=== PATIENT | female | born 1990 | race Caucasian/White ===

== ENCOUNTER 2016-10-04 14:44 | Emergency (ER) | payer SELFPAY ==
[2016-10-04 14:49] VITALS: BMI 20.3
[2016-10-04 14:53] VITALS: RESP 18; TEMP 98.2
[2016-10-04] MEDS ORDERED: TraMADol/Apap 37.5/325 mg Tab PO STA (15:20)
--- NOTE | 2016-10-04 15:24 | ED PDOC ---
Arrival/HPI - General Chief Complaint: Back Pain Time Seen by Provider: 10/04/16 15:04 Historian: Patient - History of Present Illness Narrative History of Present Illness (Text): 10/04/16 15:21 This 26 yo female with pmh herniated disc, presents to this ED c/o left lower back pain x 3 days. Patient stated pain stated after bending her back. Patient denies recent trauma, weakness, paresthesias, /GI incontinence, saddle anesthesia, urinary retention, urinary symptoms, vaginal discharge, vaginal bleeding, or abnormal gait. Time/Duration: Other (3 days) Quality: Aching Context: Home Past Medical History - Provider Review Nursing Documentation Reviewed: Yes - Infectious Disease Hx of Infectious Diseases: None - Cardiac Hx Cardiac Disorders: Yes Hx Hypertension: Yes Hx Pacemaker: No - Pulmonary Hx Respiratory Disorders: No Hx Asthma: No Hx Chronic Obstructive Pulmonary Disease (COPD): No Hx Emphysema: No - Neurological Hx Neurological Disorder: Yes HX Cerebrovascular Accident: No Hx Dementia: No Hx Migraine: Yes Hx Seizures: No - HEENT Hx HEENT Disorder: No - Renal Hx Renal Disorder: No - Endocrine/Metabolic Hx Endocrine Disorders: No - Hematological/Oncological Hx Blood Disorders: No Hx Cancer: No - Integumentary Hx Dermatological Disorder: No - Musculoskeletal/Rheumatological Hx Musculoskeletal Disorders: Yes Hx Back Pain: Yes Hx Herniated Disk: Yes - Gastrointestinal Hx Gastrointestinal Disorders: No Hx Gastroesophageal Reflux: No - Genitourinary/Gynecological Hx Genitourinary Disorders: No - Psychiatric Hx Psychophysiologic Disorder: No Hx Depression: No Hx Emotional Abuse: No Hx Physical Abuse: No Hx Substance Use: No - Surgical History Other/Comment: R knee surgery - Anesthesia Hx Anesthesia: Yes Hx Anesthesia Reactions: No - Suicidal Assessment Feels Threatened In Home Enviroment: No Family/Social History - Physician Review Nursing Documentation Reviewed: Yes Family/Social History: No Known Family HX Smoking Status: Current Some Days Smoker Hx Alcohol Use: No Hx Substance Use: No Hx Substance Use Treatment: No Allergies/Home Meds Allergies/Adverse Reactions: Allergies No Known Allergies Allergy (Verified 10/04/16 14:49) Home Medications: Home Meds Medication Instructions Recorded Confirmed Acetaminophen/Butalbital/Caf 1 tab PO BID PRN 10/04/16 10/04/16 [Fioricet] Review of Systems - Review of Systems Constitutional: Normal. absent: Fatigue, Weight Change, Fevers, Night Sweats Eyes: Normal ENT: Normal Respiratory: Normal. absent: SOB, Cough Cardiovascular: Normal. absent: Chest Pain, Palpitations Gastrointestinal: Normal. absent: Abdominal Pain, Nausea, Vomiting Genitourinary Female: Normal Musculoskeletal: Back Pain. absent: Arthralgias, Neck Pain, Joint Swelling Skin: Normal. absent: Rash Neurological: Normal. absent: Headache, Dizziness, Focal Weakness, Gait Changes , Speech Changes Endocrine: Normal Hemo/Lymphatic: Normal Psychiatric: Normal Physical Exam Vital Signs Temp Pulse Resp BP Pulse Ox 10/04/16 14:52 98.2 F 84 18 102/67 100 Temperature: Afebrile Blood Pressure: Normal Pulse: Regular Respiratory Rate: Normal Appearance: Positive for: Well-Appearing, Non-Toxic, Comfortable Pain Distress: None Mental Status: Positive for: Alert and Oriented X 3 - Systems Exam Head: Present: Atraumatic, Normocephalic Pupils: Present: PERRL Extroacular Muscles: Present: EOMI Conjunctiva: Present: Normal Mouth: Present: Moist Mucous Membranes Neck: Present: Normal Range of Motion, Trachea Midline. No: Meningeal Signs, MIDLINE TENDERNESS, Paraspinal Tenderness Respiratory/Chest: Present: Clear to Auscultation, Good Air Exchange. No: Respiratory Distress, Accessory Muscle Use, Wheezes, Retracting Cardiovascular: Present: Regular Rate and Rhythm, Normal S1, S2. No: Murmurs Abdomen: Present: Normal Bowel Sounds. No: Tenderness, Distention, Peritoneal Signs Back: Present: Normal Inspection, Paraspinal Tenderness ((+) mild left paravertebral tenderness. No vertebral point tenderness. no vertebral step off ). No: CVA Tenderness, Midline Tenderness Upper Extremity: Present: Normal Inspection, Normal ROM, NORMAL PULSES, Neurovascularly Intact, Capillary Refill < 2s. No: Cyanosis, Edema Lower Extremity: Present: Normal Inspection, NORMAL PULSES, Normal ROM, Neurovascularly Intact, Capillary Refill < 2 s. No: Edema Neurological: Present: GCS=15, CN II-XII Intact, Speech Normal, Motor Func Grossly Intact, Normal Sensory Function, Normal Cerebellar Funct, Gait Normal, Memory Normal, Other (No nuro focal deficits) Skin: Present: Warm, Dry, Normal Color. No: Rashes Psychiatric: Present: Alert, Oriented x 3, Normal Insight, Normal Concentration Medical Decision Making ED Course and Treatment: 10/04/16 16:21 Re-evaluation. Patient feels better. Discussed results and plan with patient who expresses understanding. Counseling was provided regarding the diagnosis and prognosis. All questions answered and there is agreement with the plan to discharge home with instructions. Patient stable for discharge. Return if symptoms persist or worsen Patient was recommended to f/u clinic doctor for follow up visit in 1-2 days. To return to ER if symptoms worsen. 10/04/16 16:22 Patient was tretaed with Toradol IM, Valium, and ultracet, which improved patient symptoms. Re-evaluation Time: 16:22 Reassessment Condition: Re-examined, Improved - Medication Orders Current Medication Orders: Discontinued Medications Diazepam (Valium) 5 mg PO ONCE ONE PRN Reason: Protocol Stop: 10/04/16 15:20 Last Admin: 10/04/16 15:42 Dose: 5 mg Ketorolac Tromethamine (Toradol) 30 mg IM STAT STA Stop: 10/04/16 15:21 Last Admin: 10/04/16 15:42 Dose: 30 mg Tramadol/Acetaminophen (Ultracet 37.5/325 Mg) 1 tab PO STAT STA Stop: 10/04/16 15:21 Last Admin: 10/04/16 15:42 Dose: 1 tab Disposition/Present on Arrival - Present on Arrival Any Indicators Present on Arrival: No History of DVT/PE: No History of Uncontrolled Diabetes: No Urinary Catheter: No History of Decub. Ulcer: No History Surgical Site Infection Following: None - Disposition Have Diagnosis and Disposition been Completed?: Yes Diagnosis: Back pain Disposition: HOME/ ROUTINE Disposition Time: 16:23 Patient Plan: Discharge Condition: IMPROVED Discharge Instructions (ExitCare): Back Pain (ED) Additional Instructions: Call clinic office for follow up visit in 1-2 days. Take medication as instructed with food. return to emergency if symptoms worsen, worsen pain, urinary or bowel incontinence. Prescriptions: diaZEpam [Valium] 5 mg PO DAILY #7 tab Naproxen 500 mg PO BID PRN #14 tab PRN Reason: Pain, Severe (8-10) traMADol [Ultram] 50 mg PO TID PRN #15 tab PRN Reason: Pain, Severe (8-10) Referrals: Zac Cantu, [Primary Care Provider] - Follow up with primary [facility] [Outside] - Follow up with primary [facility] [Outside] - Follow up with primary [facility] [Outside] - Follow up with primary Forms: [employer] (Faroese), WORK NOTE
[2016-10-04 16:45] VITALS: BP 98/76; PULSE 78; O2SAT 98
== END 2016-10-04 16:46 | disposition home or self-care (01) ==
LOC: ED 14:44
DX: M54.5 Low back pain (principal)
CPT/HCPCS: 96372; 99284; J1885

== ENCOUNTER 2017-03-23 22:53 | Emergency (ER) | payer SELFPAY ==
[2017-03-23 22:55] VITALS: BMI 20.3
[2017-03-23] MEDS ORDERED: Multivitamin (MVI) 10 ML, Thiamine 100 MG, Folic Acid 1 MG in Dextrose 5% In Water 1,00... IV ONE (23:10)
--- NOTE | 2017-03-23 23:14 | ED PDOC ---
Arrival/HPI - General Chief Complaint: Anxiety Time Seen by Provider: 03/23/17 23:01 Historian: Patient, Partner EM Caveat: Acuity of Condition - Critical Care Critical Care Minutes: 30 minutes - History of Present Illness Narrative History of Present Illness (Text): 03/23/17 23:12 Healthy 26 yo had roughly 8 drinks in less than an hour because she was upset emotionally and presents now in the midst of a full blown panic attack. Hyperventilating and carpal pedal spasm. Boyfriend and supportive female friend at the bedside coaching her to breathe slowly, NRB face mask applied. Time/Duration: 1/2 hour Symptom Onset: Sudden Symptom Course: Worsening Quality: Other (hyperventilating) Severity Level: 8 Context: Other (out drinking alcohol with friends) Associated Symptoms (Text): 03/23/17 23:15 NONE Past Medical History - Provider Review Nursing Documentation Reviewed: Yes - Travel History Have you recently traveled outside [place] w/in the past 3 mons?: No - Past History Past History: No Previous - Infectious Disease Hx of Infectious Diseases: None - Tetanus Immunization Tetanus Immunization: Unknown - Reproductive Menopause: No Currently : Unknown - Cardiac Hx Cardiac Disorders: Yes Hx Hypertension: Yes Hx Pacemaker: No - Pulmonary Hx Respiratory Disorders: No Hx Asthma: No Hx Chronic Obstructive Pulmonary Disease (COPD): No Hx Emphysema: No - Neurological Hx Neurological Disorder: Yes HX Cerebrovascular Accident: No Hx Dementia: No Hx Migraine: Yes Hx Seizures: No - HEENT Hx HEENT Disorder: No - Renal Hx Renal Disorder: No - Endocrine/Metabolic Hx Endocrine Disorders: No - Hematological/Oncological Hx Blood Disorders: No Hx Cancer: No - Integumentary Hx Dermatological Disorder: No - Musculoskeletal/Rheumatological Hx Musculoskeletal Disorders: Yes Hx Back Pain: Yes Hx Herniated Disk: Yes - Gastrointestinal Hx Gastrointestinal Disorders: No Hx Gastroesophageal Reflux: No - Genitourinary/Gynecological Hx Genitourinary Disorders: No - Psychiatric Hx Psychophysiologic Disorder: No Hx Depression: No Hx Emotional Abuse: No Hx Physical Abuse: No Hx Substance Use: No - Surgical History Other/Comment: R knee surgery - Anesthesia Hx Anesthesia: Yes Hx Anesthesia Reactions: No - Suicidal Assessment Feels Threatened In Home Enviroment: No Family/Social History - Physician Review Nursing Documentation Reviewed: Yes Family/Social History: No Known Family HX Smoking Status: Current Some Days Smoker Hx Alcohol Use: Yes Frequency of alcohol use: Few days per week Hx Substance Use: No Hx Substance Use Treatment: No Allergies/Home Meds Allergies/Adverse Reactions: Allergies No Known Allergies Allergy (Verified 10/04/16 14:49) Home Medications: Home Meds Medication Instructions Recorded Confirmed No Known Home Med 03/23/17 03/23/17 Review of Systems - Physician Review All systems were reviewed & negative as marked: Yes - Review of Systems Systems not reviewed;Unavailable: Intoxicated Musculoskeletal: Other (carpal pedal spasm) Skin: Normal Neurological: Other (hyperventilating) Psychiatric: Anxiety, Depression Physical Exam - Physical Exam Narrative Physical Exam (Text): 03/23/17 23:20 26 yo healthy female hyperventilating but aware, refuses to answer questions. Skin color good, pupils reactive, HEENT Atraumatic, Neck Supple, Chest, CTA, Heart, RRR no Murmur, ABD soft and benign, Extr unremarkable, Integument, no trauma, Neuro exam not performed, patient unable to cooperate Physical Exam Limitations: Uncooperative Vital Signs Reviewed: Yes Vital Signs Temp Pulse Resp BP Pulse Ox 03/24/17 03:00 17 03/24/17 02:57 81 18 110/74 99 03/24/17 01:47 84 16 107/79 99 03/24/17 01:00 17 03/24/17 00:45 81 17 102/55 L 100 03/24/17 00:29 97.7 F 03/23/17 23:45 86 20 102/66 86 L 03/23/17 23:30 83 19 108/70 100 03/23/17 23:15 30 H 03/23/17 23:00 109 H 32 H 134/83 100 Temperature: Afebrile Blood Pressure: Normal Pulse: Tachycardic Respiratory Rate: Tachypneic Appearance: Positive for: Well-Appearing Pain Distress: Other (Hyperventilating, emotionally distressed) Mental Status: Positive for: Agitated - Systems Exam Head: Present: Atraumatic, Normocephalic Pupils: Present: PERRL Extroacular Muscles: Present: EOMI Conjunctiva: Present: Normal Mouth: Present: Moist Mucous Membranes Pharnyx: Present: Normal, Soft Palate/Uvular Edema. No: ERYTHEMA, EXUDATE, TONSILS ENLARGED Nose (Internal): Present: Normal Inspection Neck: Present: Normal Range of Motion Respiratory/Chest: Present: Clear to Auscultation Cardiovascular: Present: Regular Rate and Rhythm. No: Murmurs Abdomen: Present: Normal Bowel Sounds. No: Tenderness, Distention Rectal: Present: Other (deferred) Genitourinary/Pelvic Exam: Present: Other (deferred) Back: Present: Normal Inspection. No: CVA Tenderness, Midline Tenderness Upper Extremity: Present: Normal Inspection. No: Cyanosis, Edema Lower Extremity: Present: Normal Inspection. No: Edema Neurological: Present: CN II-XII Intact, Normal Sensory Function Skin: Present: Warm, Dry Psychiatric: Present: Alert, Anxious, Agitated, Intoxicated Medical Decision Making ED Course and Treatment: 03/23/17 23:25 Will check for alcohol level and toxicology, possible , IV multivitamins and Thiamine, rodriguez catheter - Lab Interpretations Lab Results: 03/23/17 23:30 03/23/17 23:30 Lab Results 03/23/17 23:30: Urine Opiates Screen Negative, Urine Methadone Screen Negative, Ur Barbiturates Screen Negative, Ur Phencyclidine Scrn Negative, Ur Amphetamines Screen Negative, U Benzodiazepines Scrn Negative, U Oth Cocaine Metabols Negative, U Cannabinoids Screen Positive H 03/23/17 23:30: Beta HCG, Quant < 2.39, Alcohol, Quantitative 136 H 03/23/17 23:30: Sodium 138, Potassium 3.5 L, Chloride 106, Carbon Dioxide 18 L, Anion Gap 18, BUN 11, Creatinine 0.6 L, Est GFR ( Amer) > 60, Est GFR ( Non-Af Amer) > 60, Random Glucose 89, Calcium 9.5, Total Bilirubin 0.4, AST 31, ALT 31, Alkaline Phosphatase 101, Total Protein 7.6, Albumin 4.6, Globulin 3.0, Albumin/Globulin Ratio 1.5 03/23/17 23:30: Urine Color Yellow, Urine Appearance Clear, Urine pH 6.0, Ur Specific Eaton 1.015, Urine Protein Negative, Urine Glucose (UA) Negative, Urine Ketones Negative, Urine Blood Negative, Urine Nitrate Negative, Urine Bilirubin Negative, Urine Urobilinogen 0.2, Ur Leukocyte Esterase Negative 03/23/17 23:30: WBC 7.4, RBC 4.40, Hgb 12.3, Hct 36.7, MCV 83.4, MCH 28.0, MCHC 33.5, RDW 14.1, Plt Count 243, MPV 10.1, Gran % 59.4, Lymph % (Auto) 30.6, Rhea % (Auto) 8.7 H, Eos % (Auto) 1.2 L, Baso % (Auto) 0.1, Gran # 4.39, Lymph # 2.3 , Rhea # 0.6, Eos # 0.1, Baso # 0.01 I have reviewed the lab results: Yes - RAD Interpretation Radiology Orders: 03/24/17 00:10 HEAD W/O CONTRAST [CT] Stat - Medication Orders Current Medication Orders: Discontinued Medications Multivitamins/Vitamin C 10 ml/Thiamine HCl 100 mg/ Folic Acid 1 mg/ Dextrose 1, 011.2 mls @ 1,000 mls/hr IV .Q1H1M ONE Stop: 03/24/17 00:10 Last Admin: 03/24/17 00:17 Dose: 1,000 mls/hr eMAR Start Stop Document 03/24/17 00:17 ND (Rec: 03/24/17 00:17 ND [id number]) Intravenous Solution Start Date 03/24/17 Start Time 00:15 End Date 03/24/17 End time 02:15 Total Infusion Time 120 Ondansetron HCl (Zofran Inj) 8 mg IVP STAT STA Stop: 03/23/17 23:31 Last Admin: 03/23/17 23:45 Dose: 8 mg IVP Administration Document 03/23/17 23:45 ND (Rec: 03/24/17 00:16 ND [id number]) Charges for Administration # of IVP Administrations 1 - PA / SUPER[employer]OR [employer] / Resident Statement MD/DO has reviewed & agrees with the documentation as recorded. - Scribe Statement The provider has reviewed the documentation as recorded by the Scribe Disposition/Present on Arrival - Present on Arrival Any Indicators Present on Arrival: No History of DVT/PE: No History of Uncontrolled Diabetes: No Urinary Catheter: No History of Decub. Ulcer: No History Surgical Site Infection Following: None - Disposition Have Diagnosis and Disposition been Completed?: Yes Diagnosis: Alcohol intoxication, Acute hyperventilation syndrome Disposition: HOME/ ROUTINE Disposition Time: 06:00 Patient Plan: Discharge Condition: IMPROVED Discharge Instructions (ExitCare): Alcohol Intoxication (ED) Additional Instructions: Thank you for letting us take care of you today. The emergency medical care you received today was directed at your acute symptoms. If you were prescribed any medication, please fill it and take as directed. It may take several days for your symptoms to resolve. Return to the Emergency Department if your symptoms worsen, do not improve, or if you have any other problems. Please contact your doctor or call one of the physicians/clinics you have been referred to that are listed on the Patient Visit Information form that is included in your discharge packet. Bring any paperwork you were given at discharge with you along with any medications you are taking to your follow up visit. Our treatment cannot replace ongoing medical care by a primary care provider (PCP) outside of the emergency department. Thank you for allowing the [facility] team to be part of your care today. Follow up with our clinic in 3-4 days for re-evaluation and further management. Referrals: [facility] [Outside] - Follow up with primary [facility] [Outside] - Follow up with primary Forms: [employer] (Portuguese)
[2017-03-23] MEDS ORDERED: Thiamine 100 mg/ml Inj ONE (23:35)
[2017-03-23 23:40] LABS: BASO # 0.01 K/mm3 (0.0-2.0); BASO % 0.1 % (0.0-3.0); EOS # 0.1 (0.0-0.7); EOS % 1.2 % (1.5-5.0); GRAN # 4.39 (1.4-6.5); GRAN % 59.4 % (50.0-68.0); HEMOGLOBIN 12.3 g/dL (12.0-16.0); LYMPH # 2.3 (1.2-3.4); LYMPH % 30.6 % (22.0-35.0); MEAN CELL VOLUME 83.4 fl (80.0-105.0); MEAN CORPUSCULAR HGB CONC 33.5 g/dl (31.0-37.0); MEAN PLATELET VOLUME 10.1 fl (7.0-11.0); MONO # 0.6 (0.1-0.6); MONO % 8.7 % (1.0-6.0); RBC 4.4 10^6/uL (3.5-6.1); RED CELL DISTRIBUTION WIDTH 14.1 % (11.5-14.5); WHITE BLOOD COUNT 7.4 10^3/ul (4.5-11.0)
[2017-03-23 23:41] LABS: URINE BILIRUBIN NEGATIVE (NEGATIVE); URINE BLOOD NEGATIVE (NEGATIVE); URINE GLUCOSE (UA) NEGATIVE (NEGATIVE); URINE LEUKOCYTE ESTERASE NEGATIVE Leu/uL (NEGATIVE); URINE NITRATE NEGATIVE (NEGATIVE); URINE PROTEIN NEGATIVE mg/dL (<30 mg/dL); URINE UROBILINOGEN 0.2 E.U./dL (<1 E.U./dL)
[2017-03-23 23:42] LABS: URINE APPEARANCE CLEAR (CLEAR); URINE COLOR YELLOW (YELLOW)
[2017-03-23 23:51] LABS: ALB/GLOB RATIO 1.5 (1.1-1.8); ALBUMIN 4.6 g/dL (3.0-4.8); ALT/SGPT 31 U/L (7-56); AST/SGOT 31 U/L (14-36); BLOOD UREA NITROGEN 11 mg/dL (7-21); CALCIUM 9.5 mg/dL (8.4-10.5); GFR AFRICAN-AMERICAN > 60; GFR NON-AFRICAN AMERICAN > 60
[2017-03-24 00:01] LABS: BARBITURATES, UR NEGATIVE (NEGATIVE); BENZODIAZEPINES, UR NEGATIVE (NEGATIVE); OPIATES, UR NEGATIVE (NEGATIVE); PHENCYCLIDINE, UR NEGATIVE (NEGATIVE)
[2017-03-24 00:30] VITALS: TEMP 97.7
--- NOTE | 2017-03-24 01:15 | CT ---
EXAM: CT Head Without Intravenous Contrast CLINICAL HISTORY: 26 years old, female; Pain; Headache; Additional info: R/O FX and ich TECHNIQUE: Axial computed tomography images of the head/brain without intravenous contrast. All CT scans at this facility use one or more dose reduction techniques, viz.: automated exposure control; ma/kV adjustment per patient size (including targeted exams where dose is matched to indication; i.e. head); or iterative reconstruction technique. 339 images are submitted. Coronal and sagittal reformatted images were created and reviewed. Axial reformatted images were created and reviewed. COMPARISON: No relevant prior studies available. FINDINGS: Brain: Limited evaluation of rich-white differentiation secondary to motion. No hemorrhage. Ventricles: Unremarkable. No ventriculomegaly. Bones/joints: Limited evaluation of the bones due to motion and misregistration artifact. No displaced acute fracture. Soft tissues: Unremarkable. Sinuses: Minimal sinus disease. Mastoid air cells: Unremarkable. No mastoid effusion. Nasopharynx: Right nasal body piercing ring. IMPRESSION: No evidence of an acute intracranial hemorrhage, midline shift or mass effect is identified.
[2017-03-24 01:48] VITALS: O2SAT 99
[2017-03-24 02:58] VITALS: BP 110/74; PULSE 81
[2017-03-24 03:09] VITALS: RESP 17
== END 2017-03-24 03:15 | disposition home or self-care (01) ==
LOC: ED 22:53
DX: R06.4 Hyperventilation (principal); F10.129 Alcohol abuse with intoxication, unspecified; Y90.6 Blood alcohol level of 120-199 mg/100 ml; I10 Essential (primary) hypertension; F17.210 Nicotine dependence, cigarettes, uncomplicated
CPT/HCPCS: 70450; 80053; 81003; 84702; 85025; 96365; 96366; 96375; 99285; G0480; J2405; J3411; J7070

== ENCOUNTER 2018-04-08 03:14 | Emergency (ER) | payer MEDICAID ==
[2018-04-08 03:15] VITALS: BMI 20.3
[2018-04-08 03:24] VITALS: O2SAT 100
[2018-04-08 03:52] VITALS: TEMP 98.7
--- NOTE | 2018-04-08 04:09 | ED PDOC ---
Arrival/HPI - General Chief Complaint: Medical Clearance Time Seen by Provider: 04/08/18 03:16 Historian: Patient - History of Present Illness Narrative History of Present Illness (Text): 04/08/18 04:04 Neyda Sapp is a 27 year old female, whose past medical history includes depression, who presents to the Emergency department brought in by EMS accompanied by family for alcohol intoxication. Brother states patient drank a bottle of wine tonight and notes this is out of character for the patient as she does not usually drink alcohol. Brother reports patient has a history of depression and notes patient has been depressed recently, which may have triggered this behavior. On arrival, patient is drowsy but arousable. Limited HPI and ROS secondary to patient's alcohol intoxication. Symptom Onset: Gradual Symptom Course: Unchanged Activities at Onset: Light Context: Home Past Medical History - Provider Review Nursing Documentation Reviewed: Yes - Past History Past History: No Previous - Infectious Disease Hx of Infectious Diseases: None - Tetanus Immunization Tetanus Immunization: Unknown - Reproductive Currently : No - Cardiac Hx Cardiac Disorders: Yes Hx Hypertension: Yes Hx Pacemaker: No - Pulmonary Hx Respiratory Disorders: No Hx Asthma: No Hx Chronic Obstructive Pulmonary Disease (COPD): No Hx Emphysema: No - Neurological Hx Neurological Disorder: Yes HX Cerebrovascular Accident: No Hx Dementia: No Hx Migraine: Yes Hx Seizures: No - HEENT Hx HEENT Disorder: No - Renal Hx Renal Disorder: No - Endocrine/Metabolic Hx Endocrine Disorders: No - Hematological/Oncological Hx Blood Disorders: No Hx Cancer: No - Integumentary Hx Dermatological Disorder: No - Musculoskeletal/Rheumatological Hx Musculoskeletal Disorders: Yes Hx Back Pain: Yes Hx Herniated Disk: Yes - Gastrointestinal Hx Gastrointestinal Disorders: No Hx Gastroesophageal Reflux: No - Genitourinary/Gynecological Hx Genitourinary Disorders: No - Psychiatric Hx Psychophysiologic Disorder: No Hx Depression: No Hx Emotional Abuse: No Hx Physical Abuse: No Hx Substance Use: No - Surgical History Other/Comment: R knee surgery - Anesthesia Hx Anesthesia: Yes Hx Anesthesia Reactions: No - Suicidal Assessment Feels Threatened In Home Enviroment: No Family/Social History - Physician Review Nursing Documentation Reviewed: Yes Family/Social History: Unknown Family HX Smoking Status: Current Some Days Smoker Hx Alcohol Use: Yes Hx Substance Use: No Hx Substance Use Treatment: No Allergies/Home Meds Allergies/Adverse Reactions: Allergies No Known Allergies Allergy (Verified 10/04/16 14:49) Home Medications: Home Meds Medication Instructions Recorded Confirmed No Known Home Med 03/23/17 04/08/18 Review of Systems - Review of Systems Systems not reviewed;Unavailable: Intoxicated Psychiatric: Other (+alcohol intoxication) Physical Exam Vital Signs Reviewed: Yes Vital Signs Temp Pulse Resp BP Pulse Ox 04/08/18 03:25 98.7 F 04/08/18 03:24 100 H 20 123/74 100 Temperature: Afebrile Blood Pressure: Normal Pulse: Regular Respiratory Rate: Normal Appearance: Positive for: Well-Appearing, Non-Toxic, Comfortable Pain Distress: None Mental Status: Positive for: other (Drowsy but arousable) - Systems Exam Head: Present: Atraumatic, Normocephalic Pupils: Present: PERRL Extroacular Muscles: Present: EOMI Conjunctiva: Present: Normal Mouth: Present: Moist Mucous Membranes Neck: Present: Normal Range of Motion Respiratory/Chest: Present: Clear to Auscultation, Good Air Exchange. No: Respiratory Distress, Accessory Muscle Use Cardiovascular: Present: Regular Rate and Rhythm, Normal S1, S2. No: Murmurs Abdomen: No: Tenderness, Distention, Peritoneal Signs Back: Present: Normal Inspection Upper Extremity: Present: Normal Inspection. No: Cyanosis, Edema Lower Extremity: Present: Normal Inspection. No: Edema Neurological: Present: GCS=15, CN II-XII Intact Skin: Present: Warm, Dry, Normal Color. No: Rashes Psychiatric: Present: Intoxicated, Other (Drowsy but arousable) Medical Decision Making ED Course and Treatment: 04/08/18 04:04 Impression: 27 year old female brought in for alcohol intoxication. Plan: -- Labs, alcohol level -- Urine drug screen -- Reassess and disposition Progress Notes: 04/08/18 06:05 On re-evaluation, pt is awake, alert, and in no acute distress. Pt denies any depression or any suicidal ideation, states she feels fine and wants to go home. Pt stable for discharge. - Lab Interpretations I have reviewed the lab results: Yes - Scribe Statement The provider has reviewed the documentation as recorded by the Maria Elena Rosenbaum Provider Scribe Attestation: All medical record entries made by the Scribe were at my direction and personally dictated by me. I have reviewed the chart and agree that the record accurately reflects my personal performance of the history, physical exam, medical decision making, and the department course for this patient. I have also personally directed, reviewed, and agree with the discharge instructions and disposition. Disposition/Present on Arrival - Present on Arrival Any Indicators Present on Arrival: No History of DVT/PE: No History of Uncontrolled Diabetes: No Urinary Catheter: No History of Decub. Ulcer: No History Surgical Site Infection Following: None - Disposition Have Diagnosis and Disposition been Completed?: Yes Diagnosis: Alcohol intoxication, Cannabis abuse Disposition: HOME/ ROUTINE Disposition Time: 06:05 Patient Plan: Discharge Patient Problems: Current Active Problems Problem Status Onset Alcohol intoxication Acute Cannabis abuse Acute Condition: GOOD Discharge Instructions (ExitCare): Alcohol Abuse and Alcoholism (DC), Marijuana Use and Addiction (DC) Additional Instructions: Avoid alcohol and marijuana use/follow up with your doctor this week Referrals: [place] SCHNEIDER,Yadira Calix APN [Primary Care Provider] - Follow up with primary Forms: [employer] (Maltese), WORK NOTE
[2018-04-08 04:23] LABS: HEMOGLOBIN 12.4 g/dL (12.0-16.0); MEAN CELL VOLUME 82.2 fl (80.0-105.0); MEAN CORPUSCULAR HEMOGLOBIN 27.6 pg (25.0-35.0); MEAN CORPUSCULAR HGB CONC 33.6 g/dl (31.0-37.0); MEAN PLATELET VOLUME 10.5 fl (7.0-11.0); RBC 4.49 10^6/uL (3.5-6.1); RED CELL DISTRIBUTION WIDTH 13.7 % (11.5-14.5); WHITE BLOOD COUNT 8.1 10^3/uL (4.5-11.0)
[2018-04-08 04:29] LABS: ALB/GLOB RATIO 1.4 (1.1-1.8); ALBUMIN 4.7 g/dL (3.0-4.8); ALT/SGPT 22 U/L (7-56); AST/SGOT 32 U/L (14-36); BLOOD UREA NITROGEN 12 mg/dL (7-21); CALCIUM 9.3 mg/dL (8.4-10.5); GFR NON-AFRICAN AMERICAN > 60
[2018-04-08 05:51] LABS: BARBITURATES, UR NEGATIVE (NEGATIVE); BENZODIAZEPINES, UR NEGATIVE (NEGATIVE); OPIATES, UR NEGATIVE (NEGATIVE); PHENCYCLIDINE, UR NEGATIVE (NEGATIVE)
[2018-04-08 06:25] VITALS: BP 112/71; PULSE 85; RESP 16
== END 2018-04-08 06:24 | disposition home or self-care (01) ==
LOC: ED 03:14
DX: F10.129 Alcohol abuse with intoxication, unspecified (principal); F12.10 Cannabis abuse, uncomplicated; I10 Essential (primary) hypertension